=== PATIENT | male | born 1940 | race Two or more races ===

== ENCOUNTER 2018-06-10 12:09 | Outpatient (CLI) | payer MEDICARE, OTHER ==
[2018-06-10 12:05] VITALS: BP 93/50
[~2018-06-10 12:09] MED LIST: D-ME118S12 PO; DILT-8 PO; METF500T PO; METH4TAB3 PO; METO50TA16 PO; SITA100T PO
== END 2018-06-10 23:59 | disposition home or self-care (01) ==
LOC: MSC 12:09
PROVIDERS: ATTEND Internal Medicine
DX: S80.822D Blister (nonthermal), left lower leg, subsequent encounter (principal); S80.821D Blister (nonthermal), right lower leg, subsequent encounter; E11.9 Type 2 diabetes mellitus without complications; Z79.4 Long term (current) use of insulin; I10 Essential (primary) hypertension; I48.91 Unspecified atrial fibrillation; Z79.01 Long term (current) use of anticoagulants; X58.XXXD Exposure to other specified factors, subsequent encounter

== ENCOUNTER 2018-12-28 14:34 | Inpatient (IN) | payer MEDICARE, OTHER ==
[~2018-12-28] VITALS: Ht 162.6 cm; Wt 58.5 kg
--- NOTE | 2018-12-28 14:40 | NUR ---
AAOX3, BIB FAMILY C/O HYPERGLYCEMIA, BU=087 (12/26/18) AND BS =325 (12/27/18). RR IS EVEN AND UNLABORED WITH NAD NOTED. SKIN IS WARM AND DRY. AWAITING MD FOR EVAL.
--- NOTE | 2018-12-28 14:54 | NUR ---
DR CONTRERAS AT BEDSIDE FOR EVAL.
[2018-12-28] MEDS ORDERED: IV NS 0.9% 1,000 ML BAG IV ONE (15:00)
--- NOTE | 2018-12-28 15:05 | NUR ---
IV LINE STARTED BLOOD DRAWN AND SENT TO LAB.
[2018-12-28 15:19] LABS: BASOPHILS # (AUTO) 0.1 /CMM (0.0-0.2); BASOPHILS % (AUTO) 1.1 % (0.0-2.0); EOSINOPHILS % (AUTO) 0.2 % (0.0-6.0); HEMATOCRIT 55 % (39-51); LYMPHOCYTES % (AUTO) 8.1 % (20.0-44.0); MEAN CORPUSCULAR HGB CONC 35 g/dl (31.0-36.0); MEAN CORPUSCULAR VOLUME 97 fL (80-96); MONOCYTES # (AUTO) 1.3 /CMM (0.1-1.30); MONOCYTES % (AUTO) 10.2 % (2.0-12.0); NEUTROPHILS # (AUTO) 10.1 /CMM (1.8-8.9); NEUTROPHILS % (AUTO) 80.4 % (43.0-81.0); PLATELET COUNT (AUTO) 110 /CMM (150-450); RED BLOOD CELL COUNT(AUTO) 5.68 MIL/uL (4.5-6.0); WHITE BLOOD COUNT (AUTO) 12.6 K/uL (4.3-11.0)
[2018-12-28 15:20] LABS: HEMOGLOBIN 19.1 g/dL (13.5-17.5)
[2018-12-28 15:38] LABS: CALCIUM, SERUM 8.6 mg/dL (8.5-10.1); CARBON DIOXIDE 20 mmol/L (21-32); CHLORIDE 90 mmol/L (98-107); CREATININE 1.7 mg/dL (0.6-1.3); GLUCOSE 346 mg/dL (74-106); POTASSIUM 5.3 mmol/L (3.5-5.1); SODIUM SERUM 123 mmol/L (136-145); UREA NITROGEN, BLOOD 51 mg/dL (7-18)
[2018-12-28] MEDS ORDERED: GLIP10TA11 PO (15:39)
[2018-12-28] MEDS ORDERED: EMPA25TA PO (15:39)
[2018-12-28] MEDS ORDERED: SPIR50TA PO (15:39)
[2018-12-28] MEDS ORDERED: PRAV40TA3 PO (15:39)
[2018-12-28] MEDS ORDERED: AMIO200T4 PO (15:39)
[2018-12-28] MEDS ORDERED: METO25TA20 PO (15:39)
[2018-12-28] MEDS ORDERED: DIGO125T PO (15:39)
[2018-12-28] MEDS ORDERED: FURO-145 PO (15:39)
[2018-12-28 15:45] LABS: ALANINE AMINOTRANSFERASE 57 U/L (12-78); ALBUMIN 2.9 g/dL (3.4-5.0); ALKALINE PHOSPHATASE 111 U/L (46-116); ASPARTATE AMINOTRANSFERASE 45 U/L (15-37); B-TYPE NATRIURETIC PEPTIDE 1921 PG/ML (0-125); BILIRUBIN,DIRECT 0.5 mg/dL (0.0-0.2); BILIRUBIN,TOTAL 1.6 mg/dL (0.2-1.0); TOTAL PROTEIN, SERUM 7.3 g/dL (6.4-8.2)
[2018-12-28 16:13] LABS: BAND % (MANUAL) 1 % (0.0-5.0); EOSINOPHILS % (MANUAL) 1 % (0-4); LYMPHOCYTES % (MANUAL) 10 % (16-48); MONOCYTES % (MANUAL) 11 % (0-11.0); NEUTROPHILS % (MANUAL) 74 (42-76); REACTIVE LYMPHOCYTES 3 % (0-0)
[2018-12-28] MEDS ORDERED: IV NS 0.9% 1,000 ML IV ONE (16:30)
--- NOTE | 2018-12-28 16:52 | NUR ---
CALLED [facility]. SERVICE PARTS DRIVER WAS PAGED
--- NOTE | 2018-12-28 17:00 | NUR ---
CALLED [facility] FOR MS BED
--- NOTE | 2018-12-28 17:18 | NUR ---
CHANGED BED 202-MS
--- NOTE | 2018-12-28 17:27 | NUR ---
REPORT GIVEN TO MANFRED QUICK. PT AWAITING TRANSFER TO FLOOR.
[2018-12-28 18:00] VITALS: BP 106/65
--- NOTE | 2018-12-28 18:18 | NUR ---
BUNDLE CUTTER NOTES PT ARRIVED ONTO THE UNIT AT 1800 VIA GURNEY AND ACCOMPANIED BY SON AND DAUGHTER IN LAW. PT PRIMARILY YAKUT SPEAKER. PT STATES THAT HE HAS BEEN FEELING WEEK FOR PAST 3-4 WEEKS. PT WAS VISITING [place] RECENTLY. NO COMPLAINTS OF PAIN, SOB OR DISTRESS AT THIS TIME. ALL PATIENT BELONGINGS ACCOUNTED FOR AND DOCUMENTED. PT HAS A LEFT AC #20 IV INTACT AND PATENT. AWAITING DR GRANDE'S ADMITTING ORDERS. EDUCATED THE PATIENT ON THE USE OF THE CALL LIGHT. WILL BEGIN ADMISSION AND ENDORSE TO SHORE WORKING SUPERVISOR NURSE TO COMPLETE ADMISSION. SAFETY PRECAUTIONS IN PLACE BED IN LOWEST LOCKED POSITION, X2 SIDE RAILS UP AND CALL LIGHT WITHIN REACH.
--- NOTE | 2018-12-28 19:00 | NUR ---
MS RN NOTE RECEIVED PT IN STABLE CONDITION A&O X3, NEPALI SPEAKING, SON AT BEDSIDE. CURRENTLY RESTING IN BED, EASILY AROUSABLE WHEN NAME IS CALLED. NO SIGNS OF SOB OR DISTRESS, NO C/O PAIN. ATTEMPTED TO DO BODY ASSESSMENT, PT DECLINED. RISKS AND BENEFITS MADE AWARE WITH VERBALIZATION OF UNDERSTANDING. ALL CURRENT NEEDS MET. BED LOW, LOCKED, UPPER RAILS UP, AND CALL LIGHT WITHIN REACH. WILL CONT. TO MONITOR.
[2018-12-28] MEDS ORDERED: Z GUARD REMEDY 2 OZ OINT TP PRN (20:00)
[2018-12-28] MEDS ORDERED: MAGNESIUM HYDROXIDE 30 ML UDC PO PRN (20:00)
[2018-12-28] MEDS ORDERED: ONDANSETRON HCL/PF 4 MG/2 ML VIAL IVP PRN (20:00)
[2018-12-28] MEDS ORDERED: HYDROCODONE/APAP 5/325MG 1 EACH TABLET PO PRN (20:00)
[2018-12-28] MEDS ORDERED: MAG HYDROX/AL HYDROX/SIMETH 30 ML UDC PO PRN (20:00)
[2018-12-28] MEDS ORDERED: ACETAMINOPHEN 325 MG TABLET PO PRN (20:00)
[2018-12-28 20:04] VITALS: BP 98/53
[2018-12-28] MEDS ORDERED: CEFTRIAXONE 1 G VIAL ONE (20:26)
[2018-12-28] MEDS ORDERED: DEXTROSE 50%-WATER 50 ML DISP.SYRIN IV PRN (20:30)
[2018-12-28] MEDS: IV NS 0.9% 1,000 ML IV PRN (20:33)
[2018-12-28] MEDS: CEFTRIAXONE 1 G in IV D5W 50 ML IV SCH (20:33)
[2018-12-28] MEDS ORDERED: AZITHROMYCIN 500 MG VIAL ONE (21:16)
[2018-12-28] MEDS: AZITHROMYCIN 500 MG in IV D5W 250 ML IV SCH (21:21)
[2018-12-28] MEDS: BLOOD SUGAR DIAGNOSTIC 1 EACH STRIP IN SCH (22:24)
[2018-12-28] MEDS: INSULIN REGULAR, HUMAN 100 UNIT/ML 3 ML VIAL SQ PRN (22:26)
--- NOTE | 2018-12-29 06:21 | NUR ---
MS RN NOTE PT IN STABLE CONDITION A&O X3, UZBEK SPEAKING. CURRENTLY RESTING IN BED, EASILY AROUSABLE WHEN NAME IS CALLED. NO SIGNS OF SOB OR DISTRESS, NO C/O PAIN. ALL CURRENT NEEDS MET. BED LOW, LOCKED, UPPER RAILS UP, AND CALL LIGHT WITHIN REACH. WILL CONT. TO MONITOR AND ENDORSE TO NEXT SHIFT FOR MONET.
--- NOTE | 2018-12-29 07:00 | NUR ---
MS RN INITIAL NOTES Report received at bedside. Patient received in bed, awake, comfortable. Alert and oriented, verbally responsive in Azeri only. No signs and symptoms of distress. IV fluids connected. Safety measures in place. Will continue to monitor and assess patient
[2018-12-29 07:13] LABS: BASOPHILS % (AUTO) 0.2 % (0.0-2.0); EOSINOPHILS % (AUTO) 0.3 % (0.0-6.0); HEMATOCRIT 54 % (39-51); HEMOGLOBIN 18.5 g/dL (13.5-17.5); LYMPHOCYTES # (AUTO) 0.8 /CMM (0.8-4.8); LYMPHOCYTES % (AUTO) 6.8 % (20.0-44.0); MEAN CORPUSCULAR HGB CONC 34 g/dl (31.0-36.0); MEAN CORPUSCULAR VOLUME 97 fL (80-96); MONOCYTES # (AUTO) 1.1 /CMM (0.1-1.30); MONOCYTES % (AUTO) 9.6 % (2.0-12.0); NEUTROPHILS # (AUTO) 9.8 /CMM (1.8-8.9); NEUTROPHILS % (AUTO) 83.1 % (43.0-81.0); PLATELET COUNT (AUTO) 110 /CMM (150-450); RED BLOOD CELL COUNT(AUTO) 5.57 MIL/uL (4.5-6.0); WHITE BLOOD COUNT (AUTO) 11.8 K/uL (4.3-11.0)
[2018-12-29] MEDS: BLOOD SUGAR DIAGNOSTIC 1 EACH STRIP IN SCH ×4 (07:14→21:36)
[2018-12-29 07:37] LABS: CALCIUM, SERUM 8.4 mg/dL (8.5-10.1); CARBON DIOXIDE 23 mmol/L (21-32); CHLORIDE 100 mmol/L (98-107); CREATININE 1.2 mg/dL (0.6-1.3); GLUCOSE 127 mg/dL (74-106); MAGNESIUM 2.3 mg/dL (1.8-2.4); PHOSPHORUS 3.1 mg/dL (2.5-4.9); POTASSIUM 4.4 mmol/L (3.5-5.1); SODIUM SERUM 131 mmol/L (136-145); UREA NITROGEN, BLOOD 32 mg/dL (7-18)
--- NOTE | 2018-12-29 07:53 | NUR ---
MS RN NON-ADMIN NOTES Rocephin not ordered for current shift.
[2018-12-29 08:00] VITALS: BP 120/60
[2018-12-29] MEDS: INSULIN REGULAR, HUMAN 100 UNIT/ML 3 ML VIAL SQ PRN ×3 (12:15→21:39)
[2018-12-29] MEDS: IV NS 0.9% 1,000 ML IV PRN (12:40)
[2018-12-29 16:00] VITALS: BP 100/60
--- NOTE | 2018-12-29 18:30 | NUR ---
MS RN CLOSING NOTES Patient remained in room, intermittently awake, comfortable. Alert and oriented x3, Greenlandic speaking. PT eval done. All due meds given and tolerated. Denies any pain/discomfort. Not in any type of distress. No SOB/labored breathing noted. Continue on IVF, Antibiotic treatment and blood glucose monitoring. Kept patient clean, dry and comfortable. Daughter at bedside. No questions or concerns. Safety measures in place. Bed in lowest position with call light within reach. Will endorse to oncoming shift nurse. 100/60 73 [phone] 97.7 98% room air Rehab Manager: An Jorgensen
--- NOTE | 2018-12-29 19:00 | NUR ---
RN MS OPENING NOTES RECEIVED PATIENT IN BED AWAKE ALERT AND ORIENTED X3, ABLE TO CARRY ON CONVERSATION AND MAKE NEEDS KNOWN, JAPANESE SPEAKER, IV SITE TO LEFT AC #20G INTACT AND PATENT, NO REDNESS, NO INFILTRATION PRESENT, IVF RUNNING ORDERED, SKIN ASSESSED SACRAL INTACT, NO REDNESS, HEELS INTACT NO REDNESS, URINAL KEPT AT BEDSIDE, ORIENTED TO STAFF AND CALL LIGHT AND KEPT WITHIN REACH, SAFETY PRECAUTION IN PLACE, LOW BED AND LOCKED, BED ALARM IN PLACE FOR SAFETY PRECAUTIONS, GOWN AND DIAPER CHANGED REMAINS CLEAN AND DRY AT THIS TIME, DENIES ANY PAIN OR DISCOMFORT WILL CONTINUE TO MONITOR AND ATTEND TO NEEDS.
[2018-12-29 20:00] VITALS: BP 131/48
[2018-12-29 20:16] VITALS: BP 131/48
[2018-12-29] MEDS: CEFTRIAXONE 1 G in IV D5W 50 ML IV SCH (20:34)
[2018-12-29] MEDS: AZITHROMYCIN 500 MG in IV D5W 250 ML IV SCH (21:09)
[2018-12-29] MEDS: METOPROLOL TARTRATE 25 MG TABLET PO SCH (21:50)
--- NOTE | 2018-12-30 02:00 | NUR ---
RN MS NOTES PATIENT NOTED WANTING TO KEEP URINAL IN PLACE AT ALL TIMES, EXPLAINED RISKS, PATIENT THAN REQUESTED TO HAVE CONDOM CATHETER PLACED SO HE COULD SLEEP, STATES " ITS LIKE A FAUCET, HE CANT CONTROL IT AND WOULD LIKE TO GET SOME SLEEP", CONDOM CATHETER PLACED REQUESTED WITH PROPER ALIGNMENT, WILL CONTINUE TO MONITOR AND ASSESS SKIN .
[2018-12-30] MEDS: IV NS 0.9% 1,000 ML IV PRN (03:17)
[2018-12-30] MEDS: BLOOD SUGAR DIAGNOSTIC 1 EACH STRIP IN SCH ×4 (06:27→21:43)
[2018-12-30] MEDS: INSULIN REGULAR, HUMAN 100 UNIT/ML 3 ML VIAL SQ PRN ×3 (06:29→17:57)
--- NOTE | 2018-12-30 06:41 | NUR ---
RN MS CLOSING NOTES PATIENT IN BED AWAKE ALERT AND ORIENTED X3, ABLE TO CARRY ON CONVERSATION AND MAKE NEEDS KNOWN, AUSTRIAN SPEAKER, IV SITE TO LEFT AC #20G INTACT AND PATENT, NO REDNESS, NO INFILTRATION PRESENT, IVF RUNNING ORDERED, SKIN ASSESSED SACRAL INTACT, NO REDNESS, HEELS INTACT NO REDNESS, PATIENT REQUESTED FOR CONDOM CATHETER TO BE PLACED, ASSESSED SKIN TO PENILE AREA INTACT, NO REDNESS, NO SKIN IRRITATION, PATIENT IS ABLE TO AMBULATE TO THE BATHROOM, CALL LIGHT KEPT WITHIN REACH, SAFETY PRECAUTION IN PLACE, LOW BED AND LOCKED, BED ALARM IN PLACE FOR SAFETY PRECAUTIONS, GOWN AND DIAPER CHANGED REMAINS CLEAN AND DRY AT THIS TIME, DENIES ANY PAIN OR DISCOMFORT WILL CONTINUE TO MONITOR AND ATTEND TO NEEDS AND ENDORSE TO NEXT SHIFT. Addendum: 12/30/18 at 0645 by MALIKA GORDON RN REQUESTED FOR CONDOM CATHETER STATES " ITS TOO MUCH URINE AND URINATE FREQUENTLY AND CANT SLEEP" PATIENT WAS ABLE TO SLEEP AFTER CONDOM CATHETER PLACED. PATIENT AMBULATES TO THE BATHROOM FOR BOWEL MOVEMENTS ONLY, URINAL IS AT BEDSIDE.
[2018-12-30 07:12] LABS: BASOPHILS % (AUTO) 0.4 % (0.0-2.0); EOSINOPHILS % (AUTO) 1.6 % (0.0-6.0); HEMATOCRIT 53 % (39-51); LYMPHOCYTES % (AUTO) 9.2 % (20.0-44.0); MEAN CORPUSCULAR HGB CONC 34 g/dl (31.0-36.0); MEAN CORPUSCULAR VOLUME 97 fL (80-96); MONOCYTES # (AUTO) 1.2 /CMM (0.1-1.30); MONOCYTES % (AUTO) 10.4 % (2.0-12.0); NEUTROPHILS % (AUTO) 78.4 % (43.0-81.0); PLATELET COUNT (AUTO) 125 /CMM (150-450); RED BLOOD CELL COUNT(AUTO) 5.45 MIL/uL (4.5-6.0); WHITE BLOOD COUNT (AUTO) 11.4 K/uL (4.3-11.0)
--- NOTE | 2018-12-30 07:15 | NUR ---
MS RN NOTES PATIENT IN BED ALERT ORIENTED X 3. NO ACUTE DISTRESS NOTED. BREATHING UNLABORED. NO SOB NOTED. IV ACCESS PATENT AND INTACT, NO REDNESS OR SWELLING NOTED. SAFETY MEASURES IN PLACE. CALL LIGHT WITHIN REACH. WILL CONTINUE TO MONITOR ACCORDINGLY.
[2018-12-30 07:34] LABS: CALCIUM, SERUM 8.4 mg/dL (8.5-10.1); CARBON DIOXIDE 20 mmol/L (21-32); CHLORIDE 103 mmol/L (98-107); GLUCOSE 117 mg/dL (74-106); MAGNESIUM 2.2 mg/dL (1.8-2.4); PHOSPHORUS 2.9 mg/dL (2.5-4.9); POTASSIUM 4.6 mmol/L (3.5-5.1); SODIUM SERUM 134 mmol/L (136-145); UREA NITROGEN, BLOOD 20 mg/dL (7-18)
[2018-12-30 08:00] VITALS: BP 112/60
[2018-12-30] MEDS: glipiZIDE 10 MG TABLET PO SCH (09:48)
[2018-12-30] MEDS: FUROSEMIDE 20 MG TABLET PO SCH (09:48)
[2018-12-30] MEDS: ATORVASTATIN 10 MG TABLET PO SCH (09:48)
[2018-12-30] MEDS: DIGOXIN 0.125 MG TABLET PO SCH (09:49)
[2018-12-30] MEDS: AMIODARONE HCL 200 MG TABLET PO SCH (09:49)
[2018-12-30] MEDS: LINAGLIPTIN 5 MG TABLET PO SCH (09:50)
--- NOTE | 2018-12-30 14:00 | NUR ---
MS RN NOTES SEEN AND EVALUATED BY DR HARLEY TORRES.
[2018-12-30 16:00] VITALS: BP 105/56
--- NOTE | 2018-12-30 19:00 | NUR ---
MS RN NOTES PATIENT IN BED ALERT ORIENTED X 3. NO ACUTE DISTRESS NOTED. BREATHING UNLABORED. NO SOB NOTED. IV ACCESS PATENT AND INTACT, NO REDNESS OR SWELLING NOTED. DUE MEDICATIONS GIVEN, NO ASE NOTED. NEEDS ATTENDED AND ANTICIPATED. SAFETY MEASURES IN PLACE. CALL LIGHT WITHIN REACH. WILL ENDORSE TO NIGHT NURSE FOR CONTINUITY OF CARE.
--- NOTE | 2018-12-30 19:35 | NUR ---
RN MS OPENING NOTES RECEIVED PT IN BED, AWAKE ALERT ORIENTED X3, BREATHING EVEN AND UNLABORED ON ROOM AIR, NO COUGH, CONGESTION, OR SOB, NO COMPLAINT OF PAIN OR DISCOMFORT AT THIS TIME. IV ACCESS ON THE L AC 20G WITH NS @75ML/HR. URINAL AT BEDSIDE. BED IN LOWEST LOCKED POSITION CALL LIGHT WITHIN REACH AT ALL TIMES WILL CONTINUE TO MONITOR FREQUENTLY
[2018-12-30 20:11] VITALS: BP 112/64
[2018-12-30] MEDS: CEFTRIAXONE 1 G in IV D5W 50 ML IV SCH (20:23)
[2018-12-30] MEDS: AZITHROMYCIN 500 MG in IV D5W 250 ML IV SCH (20:24)
[2018-12-30] MEDS: ZOLPIDEM TARTRATE 5 MG TABLET PO PRN (21:43)
[2018-12-30] MEDS: METOPROLOL TARTRATE 25 MG TABLET PO SCH (21:44)
[2018-12-31] MEDS: BLOOD SUGAR DIAGNOSTIC 1 EACH STRIP IN SCH ×4 (06:38→22:15)
--- NOTE | 2018-12-31 06:49 | NUR ---
RN MS CLOSING NOTES PT REMAINS IN BED, AWAKE ALERT ORIENTED X3, BREATHING EVEN AND UNLABORED ON ROOM AIR, NO COUGH, CONGESTION, OR SOB, NO COMPLAINT OF PAIN OR DISCOMFORT AT THIS TIME. IV ACCESS ON THE L AC 20G WITH NS @75ML/HR. URINAL AT BEDSIDE. BED IN LOWEST LOCKED POSITION CALL LIGHT WITHIN REACH AT ALL TIMES WILL ENDORSE TO DAY NURSE FOR MONET
[2018-12-31 08:00] VITALS: BP 117/68
[2018-12-31] MEDS: LINAGLIPTIN 5 MG TABLET PO SCH (09:00)
[2018-12-31] MEDS: FUROSEMIDE 20 MG TABLET PO SCH (09:00)
[2018-12-31] MEDS: DIGOXIN 0.125 MG TABLET PO SCH (09:00)
[2018-12-31] MEDS: ATORVASTATIN 10 MG TABLET PO SCH (09:00)
[2018-12-31] MEDS: glipiZIDE 10 MG TABLET PO SCH (09:00)
[2018-12-31] MEDS: AMIODARONE HCL 200 MG TABLET PO SCH (09:00)
[2018-12-31] MEDS: INSULIN REGULAR, HUMAN 100 UNIT/ML 3 ML VIAL SQ PRN (12:05)
--- NOTE | 2018-12-31 13:50 | NUR ---
MS RN NOTES FOLLOWED UP WITH RADIOLOGY SPOKE WITH DR REYNOSO REGARDING CT GUIDED BIOPSY OF LUNG MASS SCHEDULED TODAY, MD SAID WILL CALL BACK REGARDING UPDATE.
--- NOTE | 2018-12-31 14:50 | NUR ---
MS RN NOTES FAMILY SIVA BROUGHT [facility] MEDICATION TAKEN TO THE PHARMACY RECEIVED BY PHARMACIST
[2018-12-31 16:00] VITALS: BP_SYST 104; BP_SYST 112; BP_DIAS 59; BP_DIAS 64
[2018-12-31] MEDS: EMPAGLIFLOZIN 25 MG PO SCH ×2 (16:00→16:55)
--- NOTE | 2018-12-31 16:39 | NUR ---
MS RN NOTES FOLLOWED UP WITH RADIOLOGY SPOKE WITH DR REYNOSO REGARDING CT GUIDED BIOPSY OF LUNG MASS SCHEDULED TODAY, SAID RESCHEDULED TO TOMORROW AT 11AM. CALLED DR LIU AWARE OF RESCHEDULE, CLARIFIED DIET ORDERS, WITH ORDER TO RESUME PREVIOUS DIET ORDER CCHO TONIGHT AND NPO AFTER MIDNIGHT. NOTED AND CARRIED OUT.
[2018-12-31] MEDS: IV NS 0.9% 1,000 ML IV PRN (18:17)
--- NOTE | 2018-12-31 19:00 | NUR ---
MS RN NOTES PATIENT IN BED ALERT ORIENTED X 3. NO ACUTE DISTRESS NOTED. BREATHING UNLABORED. NO SOB NOTED. IV ACCESS PATENT AND INTACT, NO REDNESS OR SWELLING NOTED. NEEDS ATTENDED AND ANTICIPATED. SAFETY MEASURES IN PLACE. CALL LIGHT WITHIN REACH. WILL ENDORSE TO NIGHT NURSE FOR CONTINUITY OF CARE.
--- NOTE | 2018-12-31 19:30 | NUR ---
RECEIVED PATIENT IN BED AWAKE. AO X 3, ABLE TO MAKE NEEDS KNOWN. NO ACUTE DISTRESS NOTED. DENIES ANY PAIN AT THIS TIME. IV SITE PATENT, INTACT; IVF INFUSING ORDERED. SAFETY REMINDERS GIVEN. ON LOW BED WITH BILATERAL UPPER SIDE RAILS UP. CALL SHOOK WITHIN EASY REACH. WILL CONTINUE TO MONITOR.
[2018-12-31 20:00] VITALS: BP 109/60
[2018-12-31] MEDS: CEFTRIAXONE 1 G in IV D5W 50 ML IV SCH (20:20)
[2018-12-31] MEDS: AZITHROMYCIN 500 MG in IV D5W 250 ML IV SCH (21:08)
[2018-12-31] MEDS: METOPROLOL TARTRATE 25 MG TABLET PO SCH (22:00)
[2018-12-31] MEDS: ZOLPIDEM TARTRATE 5 MG TABLET PO PRN (22:19)
--- NOTE | 2019-01-01 06:00 | NUR ---
PATIENT ASLEEP, EASILY AROUSABLE. RESPIRATIONS EVEN. NO SIGNS OF PAIN NOTED. DUE MEDS GIVEN WITH NO ASE NOTED. IVF INFUSING ORDERED. NPO SINCE MIDNIGHT. NEEDS ATTENDED. SAFETY PRECAUTIONS AND COMFORT MEASURES IN PLACE. WILL GIVE REPORT TO DAY SHIFT FOR CONTINUITY OF CARE.
[2019-01-01] MEDS: BLOOD SUGAR DIAGNOSTIC 1 EACH STRIP IN SCH ×4 (06:40→21:42)
--- NOTE | 2019-01-01 07:30 | NUR ---
MS RN OPENING NOTES RECEIVED PT LAYING IN BED RESTING COMFORTABLY. PT IS EASILY AROUSABLE. PT IS ALERT AND ORIENTED, RESPIRATIONS ARE EVEN AND UNLABORED, NOT IN ANY ACUTE DISTRESS NOTED. PT DENIES ANY PAIN AT THIS TIME, NO C/O SOB, N/V. IV SITE TO LAC INTACT, NO INFILTRATION NOTED. DRESSING KEPT CLEAN AND DRY. SAFETY MEASURES ARE IN PLACE. WILL CONTINUE TO MONITOR THROUGHOUT SHIFT FOR CONTINUITY OF CARE.
[2019-01-01 08:00] VITALS: BP 101/57
[2019-01-01] MEDS: LINAGLIPTIN 5 MG TABLET PO SCH (08:24)
[2019-01-01] MEDS: FUROSEMIDE 20 MG TABLET PO SCH (08:24)
[2019-01-01] MEDS: DIGOXIN 0.125 MG TABLET PO SCH (08:25)
[2019-01-01] MEDS: ATORVASTATIN 10 MG TABLET PO SCH (08:25)
[2019-01-01] MEDS: glipiZIDE 10 MG TABLET PO SCH (08:25)
[2019-01-01] MEDS: AMIODARONE HCL 200 MG TABLET PO SCH (08:25)
[2019-01-01] MEDS: EMPAGLIFLOZIN 25 MG PO SCH (10:44)
--- NOTE | 2019-01-01 11:15 | NUR ---
MS RN NOTES-- BLOOD SUGAR 156. NO INSULIN GIVEN PT IS NPO AND LEAVING FOR CT GUIDED NEEDLE BIOPSY. NO S/SX OF HYPO/HYPERGLYCEMIA AT THIS TIME. PT LEFT IN STABLE CONDITION VIA WC, P/U BY RADIOLOGY.
[2019-01-01] MEDS ORDERED: MIDAZOLAM HCL 5MG/ML VIAL 25 MG/5 ML VIAL IV ONE (12:00)
[2019-01-01] MEDS ORDERED: NALOXONE PREFILLED SYRINGE 2 MG/2 ML SYRINGE IV ONE (12:00)
[2019-01-01] MEDS ORDERED: FENTANYL PF 250MCG/5ML AMPUL IV ONE (12:00)
--- NOTE | 2019-01-01 12:00 | NUR ---
RN NOTES-- PT CAME BACK FROM RADIOLOGY FOR CT GUIDED NEEDLE BIOPSY IN STABLE CONDITION VIA WC.
[2019-01-01 16:00] VITALS: BP 92/55
[2019-01-01] MEDS: INSULIN REGULAR, HUMAN 100 UNIT/ML 3 ML VIAL SQ PRN ×2 (17:01→21:45)
[2019-01-01] MEDS: IV NS 0.9% 1,000 ML IV PRN (17:05)
--- NOTE | 2019-01-01 18:24 | NUR ---
MS RN CLOSING NOTES ALL DUE MEDS GIVEN. NEEDS MET AND RENDERED. PT REMAINS A/O X3, AFEBRILE. RESPIRATIONS ARE EVEN AND UNLABORED, NOT IN ANY ACUTE DISTRESS NOTED. PT DENIES ANY PAIN AT THIS TIME, NO C/O SOB, N/V. IV SITE TO LAC INTACT, NO INFILTRATION NOTED. DRESSING KEPT CLEAN AND DRY. SAFETY MEASURES ARE IN PLACE. FAMILY AT BEDSIDE. REMINDED PT TO USE CALL LIGHT WHEN ASSISTANCE IS NEEDED, CALL LIGHT IS LEFT WITHIN REACH. WILL ENDORSE TO NEXT SHIFT FOR CONTINUITY OF CARE.
[2019-01-01] MEDS: AZITHROMYCIN 500 MG in IV D5W 250 ML IV SCH (19:42)
[2019-01-01 20:00] VITALS: BP 100/56
[2019-01-01 20:21] VITALS: BP 100/56
[2019-01-01] MEDS: CEFTRIAXONE 1 G in IV D5W 50 ML IV SCH (20:55)
[2019-01-01] MEDS: METOPROLOL TARTRATE 25 MG TABLET PO SCH (21:42)
[2019-01-01] MEDS: ZOLPIDEM TARTRATE 5 MG TABLET PO PRN (23:21)
[2019-01-02] MEDS: IV NS 0.9% 1,000 ML IV PRN (05:34)
--- NOTE | 2019-01-02 06:00 | NUR ---
PATIENT ASLEEP, EASILY AROUSABLE. RESPIRATIONS EVEN. NO SIGNS OF PAIN NOTED. NO SYMPTOMS OF HYPER/HYPOGLYCEMIA. DUE MEDS GIVEN WITH NO ASE NOTED. IVF INFUSING ORDERED. NEEDS ATTENDED. SAFETY PRECAUTIONS AND COMFORT MEASURES IN PLACE. WILL GIVE REPORT TO DAY SHIFT FOR CONTINUITY OF CARE.
[2019-01-02] MEDS: BLOOD SUGAR DIAGNOSTIC 1 EACH STRIP IN SCH ×2 (06:44→12:33)
[2019-01-02] MEDS: INSULIN REGULAR, HUMAN 100 UNIT/ML 3 ML VIAL SQ PRN ×2 (06:45→12:40)
--- NOTE | 2019-01-02 07:20 | NUR ---
MSRN OPENING NOTES RECEIVED PT LAYING IN BED RESTING COMFORTABLY. PT IS EASILY AROUSABLE. PT IS ALERT AND ORIENTED, RESPIRATIONS ARE EVEN AND UNLABORED, NOT IN ANY ACUTE DISTRESS NOTED. PT DENIES ANY PAIN AT THIS TIME, NO C/O SOB, N/V. IV SITE TO LAC INTACT, NO INFILTRATION NOTED. DRESSING KEPT CLEAN AND DRY. SAFETY MEASURES ARE IN PLACE. WILL CONTINUE TO MONITOR THROUGHOUT SHIFT FOR CONTINUITY OF CARE. Addendum: 01/02/19 at 0739 by REDDY MAZARIEGOS BED IN LOW/LOCKED POSITION, SIDERAILS UP, CALL LIGHT IN REACH.
[2019-01-02 08:00] VITALS: BP 114/83
[2019-01-02] MEDS: EMPAGLIFLOZIN 25 MG PO SCH (08:29)
[2019-01-02] MEDS: ATORVASTATIN 10 MG TABLET PO SCH (08:29)
[2019-01-02] MEDS: DIGOXIN 0.125 MG TABLET PO SCH (08:30)
[2019-01-02] MEDS: AMIODARONE HCL 200 MG TABLET PO SCH (08:30)
[2019-01-02] MEDS: FUROSEMIDE 20 MG TABLET PO SCH (08:30)
[2019-01-02] MEDS: glipiZIDE 10 MG TABLET PO SCH (08:30)
[2019-01-02] MEDS: LINAGLIPTIN 5 MG TABLET PO SCH (08:30)
[2019-01-02 14:00] VITALS: BP 112/62
--- NOTE | 2019-01-02 16:30 | NUR ---
DISCHARGED PATIENT IN STABLE CONDITION PICKED UP BY DAUGHTER, ACCOMPANIED TO THE LOBBY BY MARQUISE HESTER VIA WHEELCHAIR. DISCHARGED INSTRUCTIONS GIVEN, VERBALIZED UNDERSTANDING. PAPERWORK AND PRESCRIPTION HANDED TO PATIENT. ALL BELONGINGS AND HOME MEDICATIONS RETURNED. FORMS SIGNED. REMOVED IV ACCES, NO COMPLICATIONS. REMOVED NAME BAND. REFUSED PHOTOS.
== END 2019-01-02 16:30 | disposition home or self-care (01) | DRG 682 ==
LOC: ER 14:39 → TELE-TD 17:19 → MEDSG2 17:40
PROVIDERS: ADMIT Student in an Organized Health Care Education/Training Program; ATTEND Internal Medicine
DX: N17.0 Acute kidney failure with tubular necrosis (principal); J15.9 Unspecified bacterial pneumonia; E44.0 Moderate protein-calorie malnutrition; E87.1 Hypo-osmolality and hyponatremia; I13.0 Hypertensive heart and chronic kidney disease with heart failure and stage 1 through stage 4 chronic kidney disease, or unspecified chronic kidney disease; I50.9 Heart failure, unspecified; Z79.84 Long term (current) use of oral hypoglycemic drugs; Z79.899 Other long term (current) drug therapy; E86.0 Dehydration; D75.1 Secondary polycythemia; E78.5 Hyperlipidemia, unspecified; E86.1 Hypovolemia; I48.91 Unspecified atrial fibrillation; N18.3 Chronic kidney disease, stage 3 (moderate); E11.22 Type 2 diabetes mellitus with diabetic chronic kidney disease; R91.8 Other nonspecific abnormal finding of lung field
CPT/HCPCS: 36415; 71045-TC; 71250-TC; 77012-TC; 80048-TC; 80076-TC; 80162-TC; 82962-TC; 83735-TC; 83880; 84100-TC; 84484-TC; 85025-TC; 85610-TC; 85730-TC; 87070-TC; 87081-TC; 97116-TC; 97530-TC; A4349; A6402; G0378; J0456; J0696; J1815; J2250; J2310; J3010; J7030; J7060

== ENCOUNTER 2019-01-08 15:20 | Outpatient (CLI) | payer MEDICARE, OTHER ==
[2019-01-06 14:07] VITALS: BP 133/71
[~2019-01-08 15:20] MED LIST changes: +AMIO200T4 PO; -D-ME118S12 PO; +DIGO125T PO; -DILT-8 PO; +EMPA25TA PO; +FURO-145 PO; +GLIP10TA11 PO; -METF500T PO; -METH4TAB3 PO; +METO25TA20 PO; -METO50TA16 PO; +PRAV40TA3 PO; +SPIR50TA PO
[2019-01-08 15:59] VITALS: BP 100/60
== END 2019-01-08 23:59 | disposition home or self-care (01) ==
LOC: MSC 15:20
PROVIDERS: ATTEND Internal Medicine
DX: R91.8 Other nonspecific abnormal finding of lung field (principal); E11.9 Type 2 diabetes mellitus without complications; Z79.84 Long term (current) use of oral hypoglycemic drugs; E88.09 Other disorders of plasma-protein metabolism, not elsewhere classified; I48.91 Unspecified atrial fibrillation; Z79.01 Long term (current) use of anticoagulants; I10 Essential (primary) hypertension